=== PATIENT | male | born 1960 | race Caucasian/White ===

== ENCOUNTER 2024-01-29 10:51 | Emergency (ER) | payer OTHER, SELFPAY ==
[2024-01-29 10:54] VITALS: BP 167/99
--- NOTE | 2024-01-29 11:13 | ED.GENMED ---
History of Present Illness
General
Chief Complaint: Musculo-Skeletal Complaint
Time Seen by Provider: 01/29/24 11:13
History of Present Illness
History of Present Illness:
TIME OF INITIAL ENCOUNTER: 11:40 AM
HPI: The patient presents due to nearly 1 week of right-sided low back pain that radiates to the right thigh. He saw primary care doctor and went to urgent care at [facility]. X-rays at [facility] reportedly show some arthritic changes at the right hip
for which she was recommended to have a cortisone shot which is coming up this coming Thursday. However the patient doubts that his symptoms are related to the as his pain is primarily at the right low back radiating into the thigh. He was placed
on prednisone 20 mg and then another physician increase it to 50 mg for 4 days. He had a dose of Toradol recently but does not want another dose now.
EXAM:
GENERAL: Well appearing in mild distress as he cannot find a comfortable position
HEENT: Moist oral mucosa
NEUROLOGIC: Excellent strength all extremities, no obvious coordination deficits, excellent strength in an L5 and S1 distribution to the right lower extremity
PSYCHIATRIC: Appropriate mental status, normal insight and judgement
BACK: There is no significant lumbar tenderness
EXTREMITIES: Nontender, no edema, decreased creased active range of motion at the right hip due to pain at the right low back however there is no pain with passive range of motion into rotation of the right hip
SKIN: No rash, no lesions
NUMBER AND COMPLEXITY OF PROBLEMS ADDRESSED AT THE ENCOUNTER
� Chronic conditions affecting care: No significant past medical history
� Acute Exacerbation and/or Progression of Chronic Illness: This is an acute problem
� Differential Diagnosis includes: Sciatica, spinal stenosis, osteoarthritis
AMOUNT AND/OR COMPLEXITY OF DATA TO BE REVIEWED AND ANALYZED
� I performed an independent evaluation of and my interpretation is:
EKG:
CT:
X-rays:
Laboratory Studies:
Other:
� Review of other/old records: No old records available for review in [employer]
� Clinical information was obtained by an independent historian: None needed
� Prescriptions/Medications Considered but not given: Patient initially declined narcotic analgesia but ultimately excepted a very short course
� Further testing considered but not performed:
RISK OF COMPLICATIONS AND/OR MORBIDITY OR MORTALITY OF PATIENT MANAGEMENT
� Social determinants of health affecting care: Lives at home
� Discussion with other providers:
� Escalation of care including admission/observation vs risk of discharge considered: History and exam consistent with sciatica. He has no neurologic deficits or back pain 'red flags'. He is already on narcotic analgesia and
has been seen by urgent care orthopedics�he is to follow-up with orthopedics.
ANY OTHER UPDATES:
Phy Exam
Physical Exam
Physical Exam:
See HPI
Course
Vital Signs
Initial and Last Documented VS:
Initial Vital Signs
Temp Pulse Resp BP Pulse Ox
97.5 F 78 18 167/99 97
01/29/24 10:54 01/29/24 10:54 01/29/24 10:54 01/29/24 10:54 01/29/24 10:54
Last Documented Vital Signs
Temp Pulse Resp BP Pulse Ox
97.5 F 78 18 167/99 97
01/29/24 10:54 01/29/24 10:54 01/29/24 10:54 01/29/24 10:54 01/29/24 10:54
*Critical Care Note
Total Time (30-74mins, 75-104mins- exclusive of procedures): Not Applicable
ED Attending Note
-
Portions of this chart may have been created with voice recognition software.� Occasional wrong word or��sound alike� substitutions may have occurred due to the inherent limitations of voice recognition software.
Discharge Plan
Departure
Patient Disposition: Home (Routine Discharge)
Date of Disposition: 01/29/24
Time of Disposition: 12:03
Patient with high blood pressure during this ER visit?: Yes
Discharge Problem:
Sciatica
Instructions: Sciatica (DC)
Prescriptions:
New
oxycodone-acetaminophen [Percocet] 5-325 mg tablet
1 tab PO Q8H PRN (Reason: Pain) Qty: 6 0RF
Referrals:
UNKNOWN - PT DOES,NOT KNOW [Family Provider] -
Activity Restrictions/Additional Instructions:
Follow-up with orthopedics. Continue the steroids for now. I did send a prescription for Percocet for very short course to your pharmacy. If you take Percocet, I recommend something like MiraLAX to prevent constipation.
Interventions
Interventions:
*Risk Screen - Suicide Last Done: 01/29/24 10:54
*General Assessment Last Done: 01/29/24 10:54
*Neglect/Abuse Screening Last Done: 01/29/24 10:54
ED-Musculoskeletal Assessment Last Done: 01/29/24 11:04
Discharge Date and Time
Print Language: Haitian
== END 2024-01-29 12:33 | disposition home or self-care (01) ==
LOC: EMR 10:51
PROVIDERS: EMERGENCY PHYSICIAN Emergency Medicine
DX: M54.41 Lumbago with sciatica, right side (principal); M79.604 Pain in right leg; R03.0 Elevated blood-pressure reading, without diagnosis of hypertension; Z88.1 Allergy status to other antibiotic agents
CPT/HCPCS: 99283